=== PATIENT | male | born 1970 | race Caucasian/White ===

== ENCOUNTER 2021-01-09 12:30 | Outpatient (CLI) | payer OTHER | END 2021-01-09 12:39 | disposition home or self-care (01) | LOC: RAD 12:30 | PROVIDERS: ATTEND Orthopaedic Surgery | DX: M79.641 Pain in right hand (principal) ==

== ENCOUNTER 2021-01-11 09:28 | Outpatient (CLI) | payer OTHER | END 2021-01-11 12:53 | disposition home or self-care (01) | LOC: RAD 09:28 | PROVIDERS: ATTEND Orthopaedic Surgery | DX: S62.616A Displaced fracture of proximal phalanx of right little finger, initial encounter for closed fracture (principal); S62.614A Displaced fracture of proximal phalanx of right ring finger, initial encounter for closed fracture ==